=== PATIENT | male | born 1975 | race Caucasian/White ===

== ENCOUNTER 2025-01-02 06:53 | Emergency (ER) | payer BC ==
[~2025-01-02] VITALS: Ht 188 cm; Wt 113.5 kg
--- NOTE | 2025-01-02 08:16 | RADIOLOGY REPORT ---
CLINICAL INFORMATION: 49 years old, Male; headache. TECHNIQUE: Axial imaging was obtained through the brain without contrast. Coronal and sagittal reformatted images were obtained, reviewed, and stored. Images were reviewed in brain and bone windows. All CT scans at this medical facility are performed using dose modulation techniques as appropriate to a performed exam including the following: Automated exposure control was utilized; adjustment of the MA and/or KV according to patient size; and use of iterative reconstruction technique. CTDIvol = 63.51 mGy DLP = 1100.27 mGy-cm COMPARISON: None FINDINGS: There is no acute intracranial hemorrhage. No mass effect or midline shift. There are areas of hypoattenuation in the anterior, medial, superior aspects of both frontal lobes, may be sequelae of prior ischemia. The ventricles and sulci are within normal limits in size for age. Basal cisterns are patent. The calvarium is unremarkable. Paranasal sinuses and mastoid air cells are clear. IMPRESSION: 1. No CT evidence of acute intracranial abnormality. 2. Focal areas of hypoattenuation in the frontal lobes bilaterally, may be sequelae of chronic ischemic changes/infarcts. Correlate with clinical findings.
--- NOTE | 2025-01-02 08:35 | Physician Documentation ---
History of Present Illness ~ Chief Complaint: Headache Stated Complaint: HEAD DISCOMFORT Time Seen by MD: 07:01 HPI 49 year old male reports an unusual headache that started yesterday. The day before yesterday he was working strenuously around the house. The following day he began experiencing a headache that is worse when he bends over and better when laying still. It also hurts when he coughs. He denies fever, N/V/D, history of brain lesions and abnormalities. Denies neurologic deficits. The headache was gradual in onset. Medication Reconciliation Allergies: Coded Allergies: latex (Verified Allergy, Unknown, 01/02/25) Past Medical History Smoking Status: Never smoker Review of Systems All Other Systems at this time: Reviewed and Negative Physical Exam Vital Signs: Temperature: 97.6, Source: Temporal, Heart Rate: 73, Respiratory Rate: 18, BP: 136/93, Pulse Oximetry: 99, Weight: 113.500 Progress Results/Orders Results/Orders Orders - BRONWYN LOVELACE MD Ct Head (01/02/25 08:01) Completed Orders - BRONWYN LOVELACE MD Ct Head (01/02/25 08:01) Vital Signs 01/02/25 06:56 Temp 97.6 Pulse 73 Resp 18 B/P (MAP) 136/93 Pulse Ox 99 Medical Decision Making Findings 49 year old male with headache. Exam and vitals unremarkable, and CT interpreted by me demonstrated no mass, shift, or intracranial hemorrhage. Counseled, reassured, discharged with return precautions. Differential Dx:Considerations: Include: JO-Cluster, JO-Migraine, JO- Hypertensive, JO-Muscular contraction, Carbon monoxide toxicity, Hemorrhage- Intracerebral, Hemorrhage-Subarachnoid, Pseudotumor cerebri, Temporal arteritis Departure Disposition: 01 HOME / SELF CARE / HOMELESS Impression: Primary Impression: Headache Discharge Instructions: Headache Referrals: NO PRIMARY CARE PROVIDER (PCP) Education Educated: Patient, Family Educated regarding: diagnosis, treatment, prognosis, need for follow up Signature Scribe Signature: . Attestation: BRONWYN ESTRELLA MD Jan 02, 2025 08:35
[2025-01-02 08:55] VITALS: BP 128/87; PULSE 78; RESP 14; TEMP 98; O2SAT 97
== END 2025-01-02 08:59 | disposition home or self-care (01) ==
LOC: ER 06:54
DX: R51.9 Headache, unspecified (principal); R05.9 Cough, unspecified; Z91.040 Latex allergy status
CPT/HCPCS: 70450; 99284